=== PATIENT | male | born 1945 | race Caucasian/White ===

== ENCOUNTER → 2017-12-29 13:33 | Outpatient (CLI) | payer MEDICARE, OTHER ==
[2013-08-28 15:06] VITALS: BMI 30.4
[~2017-12-29 13:33] MED LIST: ASPIRIN EC81 MG PO; CENTRUM COMPLE1 EACH PO; DOC-Q-LACE100 MG PO; FISH OIL/OMEGA PO; GARLIC1 CAP PO; MICARDIS80 MG PO; NORVASC5 MG PO; PRAVACHOL80 MG PO; [UNRECOGNIZED DRUG - CODE] PO
== END | disposition home or self-care (01) ==
LOC: D.US 13:00
DX: M25.561 Pain in right knee (principal); R60.0 Localized edema

== ENCOUNTER → 2019-05-10 07:58 | Outpatient (CLI) | payer MEDICARE, OTHER ==
[2013-08-28 15:06] VITALS: BMI 30.4
== END | disposition home or self-care (01) ==
LOC: D.HCCECHO 07:58
PROVIDERS: ATTEND Internal Medicine Cardiovascular Disease
DX: I34.0 Nonrheumatic mitral (valve) insufficiency (principal)